=== PATIENT | female | born 1965 | race Caucasian/White ===

== ENCOUNTER → 2021-01-14 | Outpatient (CLI) | payer BC ==
--- NOTE | 2021-01-18 09:30 | RAD ---
DATE: 01/14/2021 3:15 PM EXAM: MAMMO MICHELLE SCREENING BILATERAL HISTORY: Screening COMPARISON: 05/20/2019 Bilateral CC and MLO views of the breasts were performed. Bilateral breast tomosynthesis was performed in CC and MLO projections. This study was interpreted with the benefit of Computerized Aided Detection (CAD). FINDINGS: Breast Density: SCATTERED The breast parenchyma shows scattered fibroglandular densities. Breast parenchyma level B No suspicious masses, microcalcifications or architectural distortion is present to suggest malignancy in either breast. The visualized axillae are unremarkable. IMPRESSION: No mammographic evidence of malignancy. BI-RADS CATEGORY: 1 NEGATIVE RECOMMENDED FOLLOW-UP: 12M 12 MONTH FOLLOW-UP Annual screening mammography is recommended, unless clinically indicated sooner based on symptoms or change in physical exam. PQRS compliance statement: Patient information was entered into a reminder system with a target due date for the next mammogram. Mammography is a sensitive method for finding small breast cancers, but it does not detect them all and is not a substitute for careful clinical examination. A negative mammogram does not negate a clinically suspicious finding and should not result in delay in biopsying a clinically suspicious abnormality. "Our facility is accredited by the [employer] Mammography Program."
== END ==
LOC: MAMMO 15:09
PROVIDERS: ATTEND Specialist
DX: Z12.31 Encounter for screening mammogram for malignant neoplasm of breast (principal)
CPT/HCPCS: 77063; 77067

== ENCOUNTER → 2021-02-10 | Outpatient (CLI) | payer BC ==
[2021-02-11 01:10] LABS: ESTRADIOL LEVEL 38.2 pg/mL (.); TESTOSTERONE TOTAL 14 ng/dL (3-41)
[2021-02-11 05:16] LABS: FSH 42.7 mIU/mL (.); PROGESTERONE 0.6 ng/mL (.)
[2021-02-15 12:13] LABS: DHEA 164 ng/dL (31-701)
== END ==
LOC: LAB 13:46
PROVIDERS: ATTEND Nurse Practitioner Family
DX: E34.9 Endocrine disorder, unspecified (principal)
CPT/HCPCS: 36415; 82626; 82670; 83001; 84144; 84403

== ENCOUNTER → 2021-09-01 | Outpatient (CLI) | payer BC ==
[2021-09-02 06:14] LABS: ESTRADIOL LEVEL 60.4 pg/mL (.); TESTOSTERONE TOTAL 15 ng/dL (4-50)
[2021-09-02 07:14] LABS: FSH 47.4 mIU/mL (.); PROGESTERONE 0.4 ng/mL (.)
[2021-09-05 15:09] LABS: DHEA 358 ng/dL (31-701)
== END ==
LOC: LAB 12:09
PROVIDERS: ATTEND Nurse Practitioner Family
DX: E34.9 Endocrine disorder, unspecified (principal)
CPT/HCPCS: 36415; 82626; 82670; 83001; 84144; 84403

== ENCOUNTER → 2021-09-16 | Outpatient (CLI) | payer BC ==
--- NOTE | 2021-09-16 09:18 | RAD ---
5 views of the cervical spine 09/16/2021 INDICATION: Radiculopathy x8 weeks. COMPARISON STUDY: None FINDINGS: No evidence of acute fracture or alignment abnormality is identified. Vertebral body height s are maintained. The atlantoaxial articulation appears to remain intact. No prevertebral soft tissue edema is seen. Mild degenerative disc space narrowing is seen at the C5-C6 and C6-C7. Facet joints r emain aligned. No acute soft tissue changes are identified. IMPRESSION: Mild degenerative changes of the cervical spine without evidence of acute fracture or ali gnment abnormality. Electronically signed by: Carlos A Hugo MD (09/16/2021 9:16 AM) [id number]
== END ==
LOC: RAD 08:57
PROVIDERS: ATTEND Family Medicine
DX: M47.22 Other spondylosis with radiculopathy, cervical region (principal); M48.02 Spinal stenosis, cervical region
CPT/HCPCS: 72050

== ENCOUNTER → 2022-03-17 | Outpatient (CLI) | payer BC ==
[2022-03-17 22:12] LABS: ESTRADIOL LEVEL 43.5 pg/mL (.); PROGESTERONE 0.5 ng/mL (.); TESTOSTERONE TOTAL 18 ng/dL (4-50)
== END ==
LOC: LAB 10:11
PROVIDERS: ATTEND Nurse Practitioner Family
DX: E34.9 Endocrine disorder, unspecified (principal)
CPT/HCPCS: 36415; 82626; 82670; 83001; 84144; 84403